=== PATIENT | male | born 1950 | race Caucasian/White ===

== ENCOUNTER 2022-04-12 09:03 | Day surgery (SDC) | payer MEDICARE, BC ==
[~2022-04-12] VITALS: Ht 170.2 cm; Wt 75.6 kg
[2022-04-12] VITALS (13 sets, daily range): BP systolic 99–161; BP diastolic 54–84
[2022-04-12] MEDS ORDERED: LOPE2CAP PO (09:36)
[2022-04-12] MEDS ORDERED: LISI40TA13 PO (09:36)
[2022-04-12] MEDS ORDERED: NITR0.4T48 (09:36)
[2022-04-12] MEDS ORDERED: METO-411 PO (09:43)
[2022-04-12] MEDS ORDERED: OMEP40CA21 PO (09:43)
[2022-04-12] MEDS ORDERED: OMEG1CAP2 PO (09:43)
[2022-04-12] MEDS ORDERED: ASPI-1071 PO (09:43)
[2022-04-12] MEDS ORDERED: HYDR25TA4 PO (09:43)
[2022-04-12] MEDS ORDERED: ATOR-2 PO (09:43)
[2022-04-12] MEDS ORDERED: diphenhydrAMINE 25mg capsule PO PRN (09:45)
[2022-04-12 09:52] LABS: BASOPHILS # (AUTO) 0.1 X10'3 (0-0.2); BASOPHILS % (AUTO) 1.1 % (0-1); EOSINOPHILS # (AUTO) 0.3 X10'3 (0-0.9); EOSINOPHILS % (AUTO) 4.1 % (0-6); HEMATOCRIT 49.6 % (42.0-52.0); HEMOGLOBIN 16.9 g/dl (14.0-17.9); LYMPHOCYTES # (AUTO) 2.4 X10'3 (1.1-4.8); LYMPHOCYTES % (AUTO) 29.9 % (21-51); MEAN CORPUSCULAR HEMOGLOBIN 32.8 PG (27.0-31.0); MEAN CORPUSCULAR VOLUME 96.6 FL (78-98); MEAN PLATELET VOLUME 9.1 FL (7.4-10.4); MONOCYTES # (AUTO) 0.8 X10'3 (0-0.9); NEUTROPHILS # (AUTO) 4.5 X10'3 (1.8-7.7); NEUTROPHILS % (AUTO) 54.9 % (42-75); PLATELET COUNT 204 X10'3 (140-440); RED BLOOD COUNT 5.14 X10'6 (4.70-6.10); RED CELL DISTRIBUTION WIDTH 13.3 % (11.5-14.5); WHITE BLOOD COUNT 8.1 X10'3 (4.5-11.0)
[2022-04-12 10:00] LABS: ALBUMIN 3.7 G/DL (3.4-5.0); ANION GAP 10 (8-16); BLOOD UREA NITROGEN 12 MG/DL (7-18); BUN/CREATININE RATIO 11.8 (5.4-32.0); CALCIUM 9.4 MG/DL (8.5-10.1); CHLORIDE 103 MMOL/L (99-107); CREATININE 1.02 MG/DL (0.60-1.10); GLUCOSE 113 MG/DL (70-104); MAGNESIUM 2.2 MG/DL (1.5-2.4); POTASSIUM 4.1 MMOL/L (3.5-5.1); SODIUM 141 MMOL/L (135-145); eGFR 72 ML/MIN
[2022-04-12] MEDS: normal saline 1,000 ML IV SCH ×2 (10:15→15:09)
[2022-04-12] MEDS ORDERED: LIDOcaine 1%/PF 5ML 10 MG/ML VIAL ONE ×2 (12:38→12:39)
[2022-04-12] MEDS ORDERED: iohexol 350MG/ML 100ml bottle IV ONE ×4 (12:39→16:27)
[2022-04-12] MEDS ORDERED: heparin 1,000 UNITS/NS 500ml 500 ML ONE ×2 (12:39)
[2022-04-12] MEDS ORDERED: heparin 1,000unit/ml 10ml vial 10 ML ONE ×2 (12:39→15:58)
[2022-04-12] MEDS ORDERED: midazolam 1 mg/ML 2ml injection ONE ×3 (12:39→15:58)
[2022-04-12] MEDS ORDERED: fentaNYL/PF 50MCG/1 ML 2ML syringe ONE ×2 (12:39→15:58)
[2022-04-12] MEDS ORDERED: clopidogrel 300mg tablet ONE (14:15)
[2022-04-12] MEDS ORDERED: ondansetron/PF 4mg/2ml inj IV PRN (14:50)
[2022-04-12] MEDS ORDERED: ketorolac tromethamine 15mg/ml inj. IV ONE (14:50)
[2022-04-12] MEDS ORDERED: HYDROcodone/acetaminophen 5mg/325mg tablet PO PRN (14:50)
[2022-04-12] MEDS: HYDROcodone/acetaminophen 10/325mg tab PO PRN (15:10)
[2022-04-12] MEDS ORDERED: nitroGLYCERIN 0.4mg SUBLingual tab SL ONE (15:52)
[2022-04-12] MEDS ORDERED: LIDOcaine 1% 30ml preserv. free vial ONE (15:58)
[2022-04-12] MEDS ORDERED: mag hydrox/Alum hydrox/simeth 30ml oral suspension PO ONE (16:05)
[2022-04-12] MEDS ORDERED: nitroGLYCERIN-Tridil 50MG/D5W 250 ML IV ONE (16:17)
[2022-04-12] MEDS ORDERED: verapamil 2.5 mg/ml inj IV ONE (16:17)
--- NOTE | 2022-04-12 16:31 | NUR ---
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 Approx 25 minutes post administration the pt cont' to C/O of chest pain 05/[address] Curry was notified and STAT bedside EKG performed -[employer] Manager notified that Dr Curry was returning to [facility] -@1553 and 1555 Nitro 0.4mg administered V/O Dr Curry-Maalox 30ml @ 1600 V/O Dr Curry -Ihsan,RN to retrieve Pt for return to [employer]
[2022-04-12] MEDS: isosorbide mononitrate 30mg tab.SR.24H PO SCH (17:20)
--- NOTE | 2022-04-12 17:59 | NUR ---
Transferred Pt to 3016A-report to YAW Schuler-VSS-Rt groin/Rt Radial sites CDI-PIV patent-NS at 200ml/hr
[2022-04-12] MEDS ORDERED: acetaminophen 325mg tablet PO PRN (19:55)
[2022-04-12] MEDS ORDERED: OXAZEpam 15mg capsule PO PRN (19:55)
[2022-04-12] MEDS ORDERED: loperamide 2mg capsule PO PRN (19:55)
[2022-04-12] MEDS ORDERED: atorvastatin 20mg tablet PO SCH (21:00)
[2022-04-12] MEDS: docusate sod 100mg capsule PO SCH (21:17)
[2022-04-12] MEDS: metoprolol succinate 25mg (24-HOUR) SR. Tablet PO SCH (21:17)
[2022-04-13 02:00] VITALS: BP 102/52
--- NOTE | 2022-04-13 05:26 | NUR ---
Pt stable, dressing to right groin CDI. Band to right radial site removed, gauze, tegerdem and coban applied to right wrist. Pt denies chest pain. NS at TKO. Rested well throughout the night.
[2022-04-13 06:00] VITALS: BP 123/69
[2022-04-13 06:55] LABS: CHOL/HDL RATIO 4.2 (0.00-4.99); CHOLESTEROL 113 MG/DL (0-200); HDL CHOLESTEROL 27 MG/DL (35-60); LDL CHOLESTEROL 64 MG/DL (50-100); TRIGLYCERIDES 141 MG/DL (20-135)
[2022-04-13] MEDS ORDERED: HYDROchlorothiazide 25mg tablet PO SCH ×2 (08:00)
[2022-04-13] MEDS ORDERED: lisinopril 20mg tablet PO SCH (08:00)
[2022-04-13] MEDS ORDERED: pantoprazole 40mg Tablet.DR PO SCH (08:00)
[2022-04-13] MEDS ORDERED: OMEGA-3/DHA/EPA/FISH OIL 1 EACH CAPSULE.DR PO SCH (08:00)
[2022-04-13] MEDS: isosorbide mononitrate 30mg tab.SR.24H PO SCH (09:16)
[2022-04-13] MEDS: docusate sod 100mg capsule PO SCH (09:16)
[2022-04-13] MEDS: HYDROcodone/acetaminophen 10/325mg tab PO PRN (09:17)
[2022-04-13] MEDS: metoprolol succinate 25mg (24-HOUR) SR. Tablet PO SCH (09:17)
[2022-04-13] MEDS ORDERED: clopidogrel 75mg tablet PO SCH (09:18)
[2022-04-13] MEDS ORDERED: aspirin 81mg tab.chew PO SCH (09:27)
[2022-04-13] MEDS ORDERED: magnesium hydroxide 30ml (MOM) UD suspension PO PRN (09:30)
[2022-04-13] MEDS ORDERED: proCHLORperazine 10 MG/2 ml inj IV PRN (09:30)
[2022-04-13] MEDS ORDERED: nitroGLYCERIN 0.4mg SUBLingual tab SL PRN (09:30)
[2022-04-13] MEDS ORDERED: CLOP75TA34 PO (10:19)
== END 2022-04-13 11:04 | disposition home or self-care (01) ==
LOC: SSTAY O 09:03 → PCU 3S 19:18 → SSTAY O 04-13 11:04
PROVIDERS: ATTEND Internal Medicine Cardiovascular Disease
DX: I25.118 Atherosclerotic heart disease of native coronary artery with other forms of angina pectoris (principal); I10 Essential (primary) hypertension; F17.210 Nicotine dependence, cigarettes, uncomplicated; E78.5 Hyperlipidemia, unspecified; G47.30 Sleep apnea, unspecified; K21.9 Gastro-esophageal reflux disease without esophagitis; F41.9 Anxiety disorder, unspecified; Z79.82 Long term (current) use of aspirin; Z82.3 Family history of stroke; Z79.899 Other long term (current) drug therapy; Z98.890 Other specified postprocedural states; Z95.5 Presence of coronary angioplasty implant and graft
CPT/HCPCS: 36415; 80048; 80061; 83735; 85025; 85610; 93005; 93459; 99152; 99153; C1725; C1751; C1760; C1769; C1874; C1894; C9604; J1644; J1885; J2250; J3010; J3490; J7030; Q0163; Q9967; 93454; A4620; A6258; C9600; G0378